=== PATIENT | male | born 1945 | race African-American/Black ===

== ENCOUNTER 2017-02-19 13:30 | Emergency (ER) | payer OTHER ==
[~2017-02-19] VITALS: Ht 188 cm; Wt 85.0 kg
[~2017-02-19 13:30] MED LIST: COUMADIN; DILTIAZEM; FLOMAX
[2017-02-19 14:27] LABS: HEMATOCRIT. 45.7 % (42.0-52.0); HEMOGLOBIN. 15.2 g/dL (14.0-18.0); MEAN CORPUSCULAR HEMOGLOBIN 28.9 pg (28.0-32.0); MEAN CORPUSCULAR VOLUME 87.2 fL (80.0-94.0); MEAN PLATELET VOLUME 8.9 fl (7.4-10.4); PLATELET 211 x1000/uL (130-400); RED BLOOD CELL COUNT 5.24 mill/uL (4.7-6.1)
[2017-02-19 14:34] LABS: INR 3.1; PROTHROMBIN TIME 32.4 sec (9.4-11.6)
[2017-02-19 14:47] LABS: CARBON DIOXIDE 26 mEq/L (21-32); CHLORIDE 108 mEq/L (98-107); TROPONIN I < 0.02 ng/mL (0.00-0.04)
[2017-02-19 15:29] LABS: PLATELET ESTIMATE NORMAL
[2017-02-19] MEDS ORDERED: SODIUM CHLORIDE 0.9% 1,000 ML IV ONE (17:21)
[2017-02-19 19:07] VITALS: BP 156/76
== END 2017-02-19 19:19 | disposition short-term general hospital (02) ==
LOC: ER 13:40
DX: R55 Syncope and collapse (principal); I48.91 Unspecified atrial fibrillation; Z79.01 Long term (current) use of anticoagulants; Z98.1 Arthrodesis status
CPT/HCPCS: 36415; 70450; 71010; 80053; 82962; 83880; 84484; 85025; 85610; 93005; 99285; J7030